=== PATIENT | male | born 1980 | race Caucasian/White ===

== ENCOUNTER 2021-08-23 10:18 | Emergency (ER) | payer SELFPAY ==
[2021-08-23 10:27] VITALS: BP 166/116; PULSE 83; RESP 18; TEMP 36.7; O2SAT 99; BMI 24.3
[2021-08-23] MEDS: ondansetron 2 mg/ML SDV 2 mL 4 MG IVP (12:05)
[2021-08-23] MEDS: lactated ringers 1,000 ML 999 ML IV (12:06)
--- NOTE | 2021-08-23 12:10 | US_ITS ---
WS: [id number] RENAL ULTRASOUND HISTORY: pain COMPARISON: None available. TECHNIQUE: 2-D and color Doppler imaging of the kidney submitted. Right kidney: 9.5 cm x 6.0 cm x 4.7 cm. Normal echogenicity with no hydronephrosis or mass. Left kidney: 9.6 cm x 5.4 cm x 6.0 cm. Normal size kidney. Nonobstructing calcification in the mid kidney measures 9 x 6 mm. No solid mass o r cortical thinning. Aorta: Normal. Urinary Bladder: Not imaged. US/US renal BI* [id number] IMPRESSION: 1. No hydronephrosis or renal mass. 2. Nonobstructing 9 x 6 mm calcification mid LEFT kidney.
--- NOTE | 2021-08-23 12:10 | US_ITS ---
WS: [id number] TESTICULAR ULTRASOUND HISTORY: pain COMPARISON: None available. TECHNIQUE: Real-time and color Doppler imaging or utilized to perform a testicular ultrasound. Right testicle: 4.0 cm x 2.5 cm x 1.8 cm. Normal size and echogenicity. No mass or torsion. Normal color Doppler is present throughout. Systolic and diastolic velocities are both present. Small hydrocele. Right epididymis: Spermatocele RIGHT epididymal head measures 5 x 5 x 6 mm. Left testicle: 4.4 cm x 3.4 cm x 2.5 cm. There is increased Doppler within the LEFT testicle as compared to the RIGHT. Normal waveform. No mas s. Small hydrocele surrounds the testicle. Left epididymis: Increased vascularity within the epididymis and a small spermatocele at the head. Sp ermatocele measures 4 x 5 x 3 mm. US/US scrotum [id number] IMPRESSION: 1. Acute LEFT epididymo-orchitis. 2. No testicular mass or torsion. 3. Small bilateral hydroceles.
[2021-08-23 12:15] LABS: Basophils # 0.1 10^3/uL (0.0-0.1); Basophils % 1.4 %; Eosinophils # 0.2 10^3/uL (0.0-0.8); Eosinophils % 1.9 %; Hematocrit 44.2 % (42.0-52.0); Hemoglobin 15.1 g/dL (11.7-16.6); Lymphocytes # 2.5 10^3/uL (0.8-4.8); Lymphocytes % 31.9 %; Mean Corpuscular HGB Conc 34.2 g/dL (30.0-36.0); Mean Corpuscular Hemoglobin 30.3 pg (28.0-34.0); Mean Corpuscular Volume 88.8 fl (80-94); Mean Platelet Volume 10.4 fL (7.4-10.4); Monocytes # 0.8 10^3/uL (0.2-0.9); Monocytes % 9.7 %; Neutrophils # 4.24 10^3/uL (1.8-7.7); Neutrophils % 54.8 %; Nucleated Red Blood Cells % 0 %; Platelet Count 259 10^3/cmm (130-400); Red Blood Count 4.98 10^6/uL (4.1-5.3); White Blood Count 7.7 10^3/uL (4.0-10.0)
--- NOTE | 2021-08-23 12:20 | W.ED.ABDPA2 ---
HPI - Abdominal Pain General: Chief Complaint: Abdominal Pain Stated Complaint: Left Abd Pain Time Seen by Provider: 08/23/21 11:50 Source: patient Mode of arrival: other (In custody of law enforcement) Limitations: no limitations History of Present Illness: 41-year-old male presents emergency room in custody of [facility]. He is complaining of left-sided abdominal pain for the last month and a half. No dysuria urgency or frequency no hematuria no penile drainage. Is complaining of intermittent pain in the left testicle sometimes is swollen. Has not had any vomiting or diarrhea. He is having mild left testicular pain today. MD elicited complaint: abdominal pain Pertinent past history: none Onset (ago): minute(s) Pain Consistency: intermittent Location: LLQ and Other (Left testicle left lower quadrant) Severity: mild Quality: cramping Exacerbating factors: nothing Relieving factors: nothing Associated Symptoms: Denies anorexia, belching, bloating, change in bowel habits, change in stool character, chills, coffee ground emesis, constipation, GI cramping, diarrhea, dyspepsia, dysuria, excessive flatus, fever(s), heartburn, hematochezia, hematuria, hematemesis, fecal incontinence, loose stools, melena, nausea, poor appetite, syncope and vomiting Review of Systems Const: Denies: fever(s) or chills ENMT: Denies: throat pain, ear or mastoid pain, nasal discharge or nasal congestion Card: Denies: syncope Resp: Denies: dyspnea, productive cough or non-productive cough GI: Denies: nausea, vomiting, hematemesis, coffee ground emesis, heartburn, diarrhea, constipation, bloating, GI cramping, belching, excessive flatus, fecal incontinence, change in bowel habits, change in stool character, hematochezia or melena : Reports: flank pain and testicular pain; Denies: difficulty urinating, dysuria, urinary frequency, urinary urgency or hematuria Skin/Breast: Denies: rash or pruritus PFSH ED PFSH: Medical History No significant past medical history Surgical History No significant past surgical history Physical Exam Const: COMMON NORMALS: no acute distress GENERAL APPEARANCE: cooperative and comfortable ORIENTATION/CONSCIOUSNESS: Yes awake, Yes oriented to person, Yes oriented to place and Yes oriented to time HENMT: COMMON NORMALS: normocephalic, atraumatic and hearing grossly normal bilaterally HEAD & SCALP: normocephalic and atraumatic Neck/C-Spine: COMMON NORMALS: no JVD Resp: COMMON NORMALS: normal respiratory effort, No retractions, No use of accessory muscles and clear to auscultation bilaterally AUSCULTATION: clear to auscultation bilaterally Cardio: COMMON NORMALS: no JVD, regular rate, regular rhythm and No murmurs present (Cardio) RATE: regular rate RHYTHM: regular rhythm GI: COMMON NORMALS: Soft to palpation and No hepatosplenomegaly present AUSCULTATION: Yes normoactive bowel sounds PALPATION: Yes Soft to palpation, No Tenderness to palpation present (GI), No Guarding due to palpation present (GI) and Yes No hepatosplenomegaly present : COMMON NORMALS: Yes no CVA tenderness, Yes normal external exam, Yes Testes normal, Yes scrotum normal, Yes no scrotal swelling and Yes No hernias present BLADDER/KIDNEY EXAM: Yes no CVA tenderness Back/Pelvis: COMMON NORMALS: no CVA tenderness Extremity: COMMON NORMALS: normal to inspection, capillary refill normal, no clubbing, cyanosis or edema, no calf tenderness and no pedal edema Neuro: SENSORIUM/ORIENTATION: Yes oriented to person, Yes oriented to place and Yes oriented to time Skin: COMMON NORMALS: no rashes or lesions noted GENERAL SKIN EXAM: no rashes or lesions noted Course Vital Signs: Vital signs: Vital Signs Temperature 98.1 F 08/23/21 10:27 Pulse Rate 83 08/23/21 10:27 Respiratory Rate 18 08/23/21 10:27 Blood Pressure 166/116 08/23/21 10:27 Pulse Oximetry 99 08/23/21 10:27 MDM - Abdominal Pain Medical Decision Making Normal scrotal exam while supine ultrasound shows varicocele. Discharged home condition nonemergent can follow-up with urology at his convenience if he wishes to be a surgical option for relief. Medical Records I reviewed the patient's medical records. Lab Data I reviewed the patient's lab results. : 08/23/21 12:05 08/23/21 12:05 Labs/Radiology: Radiology Impressions Renal Ultrasound 08/23/21 12:10 IMPRESSION: 1. No hydronephrosis or renal mass. 2. Nonobstructing 9 x 6 mm calcification mid LEFT kidney. Laboratory Results WBC 7.7 10^3/uL (4.0-10.0) 08/23/21 12:05 RBC 4.98 10^6/uL (4.1-5.3) 08/23/21 12:05 Hgb 15.1 g/dL (11.7-16.6) 08/23/21 12:05 Hct 44.2 % (42.0-52.0) 08/23/21 12:05 MCV 88.8 fl (80-94) 08/23/21 12:05 MCH 30.3 pg (28.0-34.0) 08/23/21 12:05 MCHC 34.2 g/dL (30.0-36.0) 08/23/21 12:05 RDW 13.0 % (12.1-15.1) 08/23/21 12:05 Plt Count 259 10^3/cmm (130-400) 08/23/21 12:05 MPV 10.4 fL (7.4-10.4) 08/23/21 12:05 Neut % (Auto) 54.8 % 08/23/21 12:05 Lymph % (Auto) 31.9 % 08/23/21 12:05 [place] % (Auto) 9.7 % 08/23/21 12:05 Eos % (Auto) 1.9 % 08/23/21 12:05 Baso % (Auto) 1.4 % 08/23/21 12:05 Neut # (Auto) 4.24 10^3/uL (1.8-7.7) 08/23/21 12:05 Lymph # (Auto) 2.5 10^3/uL (0.8-4.8) 08/23/21 12:05 [place] # (Auto) 0.8 10^3/uL (0.2-0.9) 08/23/21 12:05 Eos # (Auto) 0.2 10^3/uL (0.0-0.8) 08/23/21 12:05 Baso # (Auto) 0.1 10^3/uL (0.0-0.1) 08/23/21 12:05 Nucleated RBC % (auto) 0 % 08/23/21 12:05 Nucleated RBCs # 0.0 /100WBC 08/23/21 12:05 Sodium 138 mmol/L (136-145) 08/23/21 12:05 Potassium 4.1 mmol/L (3.5-5.1) 08/23/21 12:05 Chloride 101 mmol/L (98-107) 08/23/21 12:05 Carbon Dioxide 24 mmol/L (22-29) 08/23/21 12:05 Anion Gap 17.1 (5-19) 08/23/21 12:05 BUN 7 mg/dL (6-20) 08/23/21 12:05 Creatinine 0.9 mg/dL (0.7-1.2) 08/23/21 12:05 GFR Calculation 93.5 mL/min (90-130) 08/23/21 12:05 Glucose 97 mg/dL (65-115) 08/23/21 12:05 Calculated Osmolality 284 mOsm/kg (285-295) L 08/23/21 12:05 Lactic Acid 2.0 mmol/L (0.5-2.2) 08/23/21 12:19 Calcium 9.1 mg/dL (8.5-10.5) 08/23/21 12:05 Total Bilirubin 0.4 mg/dL (0.15-1.2) 08/23/21 12:05 AST 19 U/L (0-40) 08/23/21 12:05 ALT 30 U/L (0-41) 08/23/21 12:05 Alkaline Phosphatase 78 IU/L (40-130) 08/23/21 12:05 Total Protein 7.5 g/dL (6.6-8.7) 08/23/21 12:05 Albumin 4.9 g/dL (3.5-5.2) 08/23/21 12:05 Globulin 2.6 g/dL (1.3-4.6) 08/23/21 12:05 Lipase 21 U/L (13-60) 08/23/21 12:05 Urine Color Yellow (Yellow) 08/23/21 12:07 Urine Appearance Clear (CLEAR) 08/23/21 12:07 Urine pH 7 (5-7) 08/23/21 12:07 Ur Specific [place] 1.010 (1.005-1.030) 08/23/21 12:07 Urine Protein Neg (Negative) 08/23/21 12:07 Urine Glucose (UA) Norm (Normal) 08/23/21 12:07 Urine Ketones Negative (Negative) 08/23/21 12:07 Urine Blood Neg (Negative) 08/23/21 12:07 Urine Nitrate Negative (Negative) 08/23/21 12:07 Urine Bilirubin Neg (Negative) 08/23/21 12:07 Urine Urobilinogen Neg mg/dL (Negative) 08/23/21 12:07 Ur Leukocyte Esterase Negative (Negative) 08/23/21 12:07 Discharge Plan Discharge Patient Disposition: Home Clinical Impression: Left varicocele Condition: Stable Discharge Orders: Discharge ED (Routine); Ordered 08/23/21 Ordered By: Alejandro Ricardo Discharge Diet: Usual diet Discharge Activity: Increase activity as tolerated Patient Instructions: Opioid Safety Activity Restrictions/Additional Instructions: Follow-up with urology at your convenience if you wish to pursue a surgical option to relieve the varicocele. It is not emergent. Coding Level of Care Code ED [employer] for Danielle Fwd Exam Comprehensive
[2021-08-23 12:31] LABS: Add Urine Microscopic? NO; Charge for UA Resulting for Rev
[2021-08-23 12:40] LABS: Bilirubin Urine Neg (Negative); Blood Urine Neg (Negative); Glucose Urine UA Norm (Normal); Ketones Urine Negative (Negative); Leukocyte Esterase Urine Negative (Negative); Nitrate Urine Negative (Negative); Protein Urine Neg (Negative); Urine Appearance Clear (CLEAR); Urine Color Yellow (Yellow); Urobilinogen Urine Neg (Negative); pH Urine 7 (5-7)
[2021-08-23 12:43] LABS: Alanine Aminotransferase 30 U/L (0-41); Albumin Level 4.9 g/dL (3.5-5.2); Alkaline Phosphatase 78 IU/L (40-130); Anion Gap 17.1 (5-19); Aspartate Amino Transferase 19 U/L (0-40); Blood Urea Nitrogen 7 mg/dL (6-20); Calcium 9.1 mg/dL (8.5-10.5); Carbon Dioxide 24 mmol/L (22-29); Chloride 101 mmol/L (98-107); Creatinine Clr Calc Pharmacy 108.1327; Globulin 2.6 g/dL (1.3-4.6); Glomerular Filtration Rate 93.5 mL/min (90-130); Glucose 97 mg/dL (65-115); Lipase 21 U/L (13-60); Osmolality Calculated 284 mOsm/kg (285-295); Potassium 4.1 mmol/L (3.5-5.1); Sodium 138 mmol/L (136-145); Total Bilirubin 0.4 mg/dL (0.15-1.2); Total Protein 7.5 g/dL (6.6-8.7)
[2021-08-23 13:48] VITALS: BP 114/82; PULSE 76; RESP 16; O2SAT 97
== END 2021-08-23 13:50 | disposition home or self-care (01) ==
PROVIDERS: Emergency Provider Family Medicine
DX: I86.1 Scrotal varices (principal)
CPT/HCPCS: 76770; 76870; 80053; 81003; 83605; 83690; 85025; 96361; 96374; 99283; J2405